=== PATIENT | female | born 1965 | race Caucasian/White ===

== ENCOUNTER 2017-11-19 18:30 | Emergency (ER) | payer OTHER ==
[~2017-11-19] VITALS: Ht 160 cm; Wt 104.3 kg
[2017-11-19 18:33] VITALS: BP 183/98
[2017-11-19] MEDS ORDERED: KETOROLAC 60 MG/2 ML VIAL IM ONE ×2 (18:52→19:35)
[2017-11-19] MEDS ORDERED: CYCLOBENZAPRINE 10 MG TAB PO ONE (20:00)
[2017-11-19 20:47] VITALS: BP 140/78
== END 2017-11-19 20:45 | disposition home or self-care (01) ==
LOC: MED 18:30
DX: S40.011A Contusion of right shoulder, initial encounter (principal); S80.02XA Contusion of left knee, initial encounter; M54.2 Cervicalgia; M54.6 Pain in thoracic spine; V49.49XA Driver injured in collision with other motor vehicles in traffic accident, initial encounter; Y93.89 Activity, other specified; Y92.488 Other paved roadways as the place of occurrence of the external cause; Y99.8 Other external cause status
CPT/HCPCS: 70450; 72125; 72128; 73030; 73562; 96372; 99284; J1885